=== PATIENT | male | born 1995 | race Two or more races ===

== ENCOUNTER → 2020-10-26 03:41 | Outpatient (CLI) | payer OTHER | END | disposition home or self-care (01) | LOC: PPH VACUNA 03:41 | DX: Z23 Encounter for immunization (principal) ==

== ENCOUNTER 2020-11-16 23:32 | Outpatient (CLI) | payer OTHER | END 2020-11-16 23:33 | disposition home or self-care (01) | LOC: PPH VACUNA 23:32 | DX: Z23 Encounter for immunization (principal) ==